=== PATIENT | male | born 1940 | race Caucasian/White ===

== ENCOUNTER 2018-03-15 13:53 | Emergency (ER) | payer SELFPAY ==
[2018-03-15 15:06] LABS: #Basophils 0.1 thou/uL (0.0-0.2); #Eosinphils 0.1 thou/uL (0.0-0.7); #Lymphocytes 1.2 thou/uL (1.20-3.40); #Monocytes 0.4 thou/uL (0.11-0.59); #Neutrophils 7.6 thou/uL (1.40-6.50); %Basophils 0.6 % (0.0-1.0); %Eosinophils 1.1 % (0.0-10.0); %Lymphocytes 12.5 % (21.0-51.0); %Monocytes 4.6 % (0.0-10.0); %Neutrophils 81.2 % (42.0-75.0); Hemoglobin 17.2 g/dL (14.0-18.0); Mean Corpuscular HGB CONC 34.7 g/dL (32.0-36.0); Mean Corpuscular Hemoglobin 31.8 pg (27.0-31.0); Mean Corpuscular Volume 91.7 fL (78.0-98.0); Mean Platelet Volume 6.9 fL (7.4-10.4); Platelet Count 305 thou/uL (130-400); RBC Distribution Width 13.2 % (11.5-14.5); White Blood Cell (WBC) Count 9.4 thou/uL (4.8-10.8)
[2018-03-15 15:08] LABS: PTT 36.9 SEC (22.9-36.1); Prothrombin Time 22.6 SEC (12.0-14.7)
[2018-03-15 15:22] LABS: ALT (SGPT) 25 U/L (8-55); AST (SGOT) 18 U/L (5-34); Albumin 4.2 g/dL (3.4-4.8); Alkaline Phosphatase 181 U/L (40-150); Anion Gap 16 mmol/L (10-20); BUN (Urea Nitrogen) 15 mg/dL (8.4-25.7); Bilirubin, Total 1.2 mg/dL (0.2-1.2); Calc. Creatinine Clearance 0 mL/min (70-130); Calcium 10.4 mg/dL (7.8-10.44); Carbon Dioxide 20 mmol/L (23-31); Chloride 106 mmol/L (98-107); Estimated GFR-MDRD 89; Globulin 4.6 g/dL (2.4-3.5); Glucose 218 mg/dL (83-110); Potassium 4.5 mmol/L (3.5-5.1); Protein, Total 8.8 g/dL (5.8-8.1); Sodium 137 mmol/L (136-145)
--- NOTE | 2018-03-15 17:07 | CT ---
CERVICAL SPINE CT WITHOUT CONTRAST: 03/15/18 COMPARISON: None. HISTORY: Injury, trauma, pain. TECHNIQUE: Serial axial CT imaging obtained at 2.5 mm intervals from skull base through lung apices without cont rast. Coronal and sagittal reformatted imaging obtained. FINDINGS: Imaged mastoid air cells appear grossly unremarkable. The C1 ring appears intact. There is prominent degenerative change at the atlantoaxial interspace. The craniocervical and cervicothoracic junctions appear intact. The occipital condyles, the dense, and the C1-2 articulation demonstrate no acute findings. There is prominent multilevel bilateral facet and uncovertebral osteophyte formation throughout the c ervical spine, left greater than right. Imaged lung apices unremarkable. No displaced fracture or evidence of dislocation seen. Incompletely evaluated scattered atherosclerot ic calcification of the carotid system noted bilaterally, left greater than right. 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 No acute osseous abnormality. POS: [facility]
--- NOTE | 2018-03-15 17:09 | CT ---
CT OF THE HEAD 03/15/18 COMPARISON: None. HISTORY: Fall, trauma, pain. TECHNIQUE: Serial axial CT imaging at 5 mm intervals from vertex through skull base without contrast. FINDINGS: Ventriculoperitoneal shunt present, inserted via a right frontal approach, with distal tip extending into the body of the right lateral ventricle. There is mild diffuse cerebral volume loss. No intracra nial hemorrhage, midline shift, mass effect, or ventricular enlargement noted. Imaged paranasal sinus es/mastoid air cells are well aerated. IMPRESSION: Chronic findings as described above. POS: [facility]
== END 2018-03-15 17:18 | disposition home or self-care (01) ==
LOC: ERS 13:53
DX: S00.03XA Contusion of scalp, initial encounter (principal); E11.9 Type 2 diabetes mellitus without complications; I10 Essential (primary) hypertension; Z86.718 Personal history of other venous thrombosis and embolism; Z79.899 Other long term (current) drug therapy; Z79.84 Long term (current) use of oral hypoglycemic drugs; W18.2XXA Fall in (into) shower or empty bathtub, initial encounter
CPT/HCPCS: 36415; 70450; 72125; 80053; 85025; 85610; 85730